=== PATIENT | female | born 1995 ===

== ENCOUNTER 2021-01-08 13:02 | Inpatient (IN) | payer OTHER ==
[~2021-01-08] VITALS: Ht 162.6 cm; Wt 73.0 kg
== END 2021-01-10 10:04 | disposition home or self-care (01) | DRG 833 ==
LOC: SEC-K 13:02 → OB/GYN 16:02
PROVIDERS: ADMIT Obstetrics & Gynecology Maternal & Fetal Medicine; ATTEND Obstetrics & Gynecology Maternal & Fetal Medicine
DX: O21.1 Hyperemesis gravidarum with metabolic disturbance (principal); Z3A.09 9 weeks gestation of pregnancy

== ENCOUNTER → 2021-01-13 | Emergency (ER) | payer OTHER ==
[~2021-01-13] VITALS: Ht 170.2 cm; Wt 74.8 kg
== END | disposition home or self-care (01) ==
LOC: ER 03:29
DX: K59.09 Other constipation (principal); R10.84 Generalized abdominal pain; R11.2 Nausea with vomiting, unspecified

== ENCOUNTER 2021-06-25 11:41 | Outpatient (CLI) | payer OTHER | END 2021-06-25 12:28 | disposition home or self-care (01) | LOC: NST 11:41 | PROVIDERS: ATTEND Obstetrics & Gynecology Maternal & Fetal Medicine | DX: Z34.83 Encounter for supervision of other normal pregnancy, third trimester (principal) ==

== ENCOUNTER 2021-07-05 12:59 | Outpatient (CLI) | payer OTHER | END 2021-07-05 13:15 | disposition home or self-care (01) | LOC: NST 12:59 | PROVIDERS: ATTEND Obstetrics & Gynecology | DX: Z34.83 Encounter for supervision of other normal pregnancy, third trimester (principal) ==

== ENCOUNTER 2021-08-04 05:21 | Inpatient (IN) | payer OTHER ==
[~2021-08-04] VITALS: Ht 162.6 cm; Wt 3.2 kg
[2021-08-04] MEDS ORDERED: PRENATAL CAPLE1 EAC1 (06:39)
== END 2021-08-06 12:25 | disposition home or self-care (01) | DRG 788 ==
LOC: LDR 05:21 → OB/GYN 20:49
PROVIDERS: ADMIT Obstetrics & Gynecology; ATTEND Obstetrics & Gynecology
PROC: 10907ZC Drainage of Amniotic Fluid, Therapeutic from Products of Conception, Via Natural or Artificial Opening (ICD-10-PCS; 2021-08-04)
PROC: 3E033VJ Introduction of Other Hormone into Peripheral Vein, Percutaneous Approach (ICD-10-PCS; 2021-08-04)
PROC: 4A1HXFZ Monitoring of Products of Conception, Cardiac Rhythm, External Approach (ICD-10-PCS; 2021-08-04)
PROC: 10D00Z1 Extraction of Products of Conception, Low, Open Approach (ICD-10-PCS; principal; 2021-08-04 18:00)
DX: O62.1 Secondary uterine inertia (principal); O65.9 Obstructed labor due to maternal pelvic abnormality, unspecified; Z3A.00 Weeks of gestation of pregnancy not specified; Z37.0 Single live birth

== ENCOUNTER 2024-04-09 14:09 | Outpatient (CLI) | payer OTHER ==
[~2024-04-09 14:09] MED LIST: PRENATAL CAPLE1 EAC1
== END 2024-04-09 14:13 | disposition home or self-care (01) ==
LOC: SONOGRAMA 14:09
PROVIDERS: ATTEND Obstetrics & Gynecology
DX: N20.0 Calculus of kidney (principal)

== ENCOUNTER 2024-07-30 09:45 | Inpatient (IN) | payer OTHER ==
[~2024-07-30] VITALS: Ht 162.6 cm; Wt 3.2 kg
[2024-07-30 11:42] LABS: INR 0.94; PROTHROMBIN TIME 10.3 SECONDS (9.0-11.5)
[2024-08-07 07:11] VITALS: BP 126/76
[2024-08-07 07:22] VITALS: BP 126/76
[2024-08-07] MEDS ORDERED: CITRIC ACID/SODIUM CITRATE 30 ML BLIST.PACK PO SCH (08:15)
[2024-08-07] MEDS ORDERED: RINGERS SOLUTION,LACTATED 1,000 ML IV SCH (08:15)
[2024-08-07] MEDS ORDERED: ONDANSETRON HCL 2 MG/ML VIAL IV ONE (08:15)
[2024-08-07] MEDS ORDERED: CEFOXITIN SODIUM 2,000 MG VIAL IV SCH (08:30)
[2024-08-07 12:54] VITALS: BP 122/77
[2024-08-07 15:20] VITALS: BP 111/74
[2024-08-07] MEDS ORDERED: OXYTOCIN 10 UNITS/ML VIAL ONE ×2 (15:40→22:33)
[2024-08-07] MEDS ORDERED: ERYTHROMYCIN BASE OPHT 1GM EACH TUBE OP ONE (15:40)
[2024-08-07] MEDS ORDERED: MORPHINE SULFATE 4 MG/ML CARTRIDGE IV SCH (17:32)
[2024-08-07] MEDS ORDERED: OXYTOCIN 1,000 ML IV ONE (17:45)
[2024-08-07] MEDS ORDERED: KETOROLAC TROMETHAMINE 30 MG VIAL IV SCH (18:00)
[2024-08-07] MEDS ORDERED: MORPHINE SULFATE 4 MG/ML VIAL IV ONE ×2 (19:10→21:30)
[2024-08-07] MEDS ORDERED: KETOROLAC TROMETHAMINE 30 MG VIAL ONE ×2 (19:29→22:33)
[2024-08-08 01:20] VITALS: BP 124/82
[2024-08-08] MEDS ORDERED: ACETAMINOPHEN 500 MG GEL..CAP PO SCH (06:00)
[2024-08-08 06:44] LABS: MEAN CELL VOLUME 74.8 fL (80.00-100.00); MEAN CORPUSCULAR HEMOGLOBIN 24.2 pg (27.00-32.0); MEAN CORPUSCULAR HGB CONC 32.4 g/dl (32.0-36.0); PLATELET COUNT 304 K/uL (150-450); RED BLOOD COUNT 4.14 M/uL (4.00-6.00)
[2024-08-08 08:00] VITALS: BP 110/66
[2024-08-08] MEDS ORDERED: SIMETHICONE 125 MG CAPSULE PO SCH (09:00)
[2024-08-08] MEDS ORDERED: DOCUSATE SODIUM 100MG CAP PO SCH (09:00)
[2024-08-08] MEDS ORDERED: GABAPENTIN 300 MG CAPSULE PO SCH (09:00)
[2024-08-08] MEDS ORDERED: PNV,CALCIUM 72/IRON/FOLIC ACID 1 TAB TABLET PO SCH (09:00)
[2024-08-08] MEDS ORDERED: IBUprofen 600 MG TABLET PO SCH (12:00)
[2024-08-08 16:00] VITALS: BP 109/72
[2024-08-09 00:16] VITALS: BP 100/63; O2SAT 97
[2024-08-09 08:00] VITALS: BP 129/76
== END 2024-08-09 14:50 | disposition home or self-care (01) | DRG 788 ==
LOC: LDR 09:45 → O/R 08-07 07:51 → OB/GYN 08-07 19:30
PROVIDERS: Obstetrics & Gynecology Gynecology; ADMIT Obstetrics & Gynecology Maternal & Fetal Medicine; ATTEND Obstetrics & Gynecology Maternal & Fetal Medicine
PROC: 4A1HXCZ Monitoring of Products of Conception, Cardiac Rate, External Approach (ICD-10-PCS; 2024-08-07)
PROC: 10D00Z1 Extraction of Products of Conception, Low, Open Approach (ICD-10-PCS; principal; 2024-08-07 18:15)
DX: O32.1XX0 Maternal care for breech presentation, not applicable or unspecified (principal); O34.211 Maternal care for low transverse scar from previous cesarean delivery; Z3A.39 39 weeks gestation of pregnancy; Z37.0 Single live birth